=== PATIENT | male | born 1980 | race Two or more races ===

== ENCOUNTER 2016-05-19 23:14 | Emergency (ER) | payer OTHER ==
--- NOTE | ~2016-05-19 | CT71 ---
[facility] RADIOLOGY TEXT RESULTS PATIENT: NITO COULTER LOCATION: [facility] : 76 UNIT #: [id number] AGE: [address]: Susan Roberts MD SEX: M ORDER DR: [id number] [facility]. [place], [place] [address] [id number] MR#: [id number] Acc #: [id number] NAME: NITO COULTER : 1980 SEX: M STUDY DATE/TIME: 05/19/2016 23:47 UNIT: [facility] ROOM: STUDY DESCRIPTION: CT Head Wo Contrast Attending Physician: Susan Roberts M.D. Ordering Physician: Susan Roberts M.D. Primary Care Physician: Primary Care Physician No MEDICAL IMAGING REPORT This report is preliminary unless electronic signature is present EXAM CT head without contrast date 05/19/2016 at 23:47 HISTORY Headache, left hand and left leg numbness, fever intermittently for a month. Frontal headache. High cholesterol. Asthma. COMPARISON None. This CT exam was performed with one or more of the following radiation dose reduction techniques: automatic exposure control, adjustment of mA and/or kV according to patient size, and iterative reconstruction. FINDINGS Axial noncontrast images were obtained from the skull base to the vertex. Ventricular size and configuration are normal. There is no evidence of acute infarct or hemorrhage. There are no extra-axial fluid collections. No mass lesion or mass effect is seen. There are no skull fractures. IMPRESSION Normal noncontrast head CT. Dictated by... Suma Mata M.D. THIS IS AN ELECTRONICALLY VERIFIED REPORT Suma Mata M.D. at 05/20/2016 9:57 PM JANETTE/michael TD: 05/20/2016 10:41 JOB #: [id number] [facility] A [facility] RADIOLOGY TEXT RESULTS PATIENT: NITO COULTER LOCATION: [facility] : 76 UNIT #: [id number] AGE: [address]: Susan Roberts MD SEX: M ORDER DR: MEDICAL IMAGING REPORT COPY
[~2016-05-19 23:14] MED LIST: ALBUTEROL17 GM INH; ATARAX PO; DELTASONE20 MG PO; GABAPENTIN600 MG PO; HYDROXYZINE PAM25 M1 PO; IBUPROFEN800 MG PO; PRILOSEC PO; SERTRALINE HCL50 M1 PO; TRAMADOL HCL50 M2 PO
== END 2016-05-20 00:24 | disposition home or self-care (01) ==
LOC: CED 23:14
DX: R51 Headache (principal); G89.29 Other chronic pain; J45.909 Unspecified asthma, uncomplicated; F17.210 Nicotine dependence, cigarettes, uncomplicated
CPT/HCPCS: 70450; 99284